=== PATIENT | male | born 1985 | race Caucasian/White ===

== ENCOUNTER 2016-11-07 13:53 | Emergency (ER) | payer OTHER ==
[2016-11-07] MEDS ORDERED: Rabies VIRUS VACCINE, HDCV* 2.5 UNIT/ML 1 ML IM ONE (14:06)
[2016-11-07] MEDS ORDERED: Rabies Immune Globulin 10 ML* 150 UNIT/ML VIAL IM ONE (14:07)
[2016-11-07] MEDS ORDERED: Rabies Immune Globulin 2 ML* 150 UNITS/ML VIAL IM ONE (14:08)
[2016-11-07 14:11] VITALS: BP 96/56
[2016-11-07] MEDS ORDERED: Tetan/Diph/Pertus SYR(Tdap)* 0.5 ML SYR(BOOSTRIX) use SYR IM ONE (14:12)
--- NOTE | 2016-11-07 14:14 | UC ---
General HPI - HPI Summary HPI Summary: had a bat flying in his bed room---Here for Vaccines - History of Current Complaint Chief Complaint: UCGeneralIllness Stated Complaint: RABIES EXPOSURE Time Seen by Provider: 11/07/16 14:10 Hx Obtained From: Patient Onset/Duration: Sudden Onset Timing: Constant Current Severity: None - Allergy/Home Medications Allergies/Adverse Reactions: Allergies Allergy/AdvReac Type Severity Reaction Status Date / Time No Known Allergies Allergy Verified 11/07/16 13:58 Home Medications: Home Medications NK [No Home Medications Reported] 11/07/16 [History Confirmed 11/07/16] PMH/Surg Hx/FS Hx/Imm Hx Previously Healthy: Yes - Surgical History Surgical History: None - Family History Known Family History: Positive: None - Social History Occupation: Employed Full-time Lives: With Family Alcohol Use: Occasionally Substance Use Type: None Smoking Status (MU): Never Smoked Tobacco Review of Systems Constitutional: Negative Skin: Negative Eyes: Negative ENT: Negative Respiratory: Negative Cardiovascular: Negative Gastrointestinal: Negative Genitourinary: Negative Motor: Negative Neurovascular: Negative Musculoskeletal: Negative Neurological: Negative Psychological: Negative All Other Systems Reviewed And Are Negative: Yes Physical Exam Triage Information Reviewed: Yes Appearance: Well-Appearing, No Pain Distress, Well-Nourished Vital Signs: Initial Vital Signs Temp 99.6 F 11/07/16 13:58 Pulse 51 11/07/16 13:58 Resp 16 11/07/16 13:58 BP 96/56 11/07/16 13:58 Pulse Ox 98 11/07/16 13:58 Vital Signs Reviewed: Yes Eye Exam: Normal Eyes: Positive: Conjunctiva Clear ENT Exam: Normal ENT: Positive: Normal ENT inspection, Hearing grossly normal, Pharynx normal. Negative: Nasal congestion, Nasal drainage, Trismus, Muffled/hoarse voice Dental Exam: Normal Neck exam: Normal Neck: Positive: Supple, Nontender Respiratory Exam: Normal Respiratory: Positive: Chest non-tender, No respiratory distress, No accessory muscle use Cardiovascular Exam: Normal Cardiovascular: Positive: RRR, No Murmur, Pulses Normal, Brisk Capillary Refill Musculoskeletal Exam: Normal Musculoskeletal: Positive: Strength Intact, ROM Intact, No Edema Neurological Exam: Normal Neurological: Positive: Alert, Muscle Tone Normal Psychological Exam: Normal Skin Exam: Normal Course/Dx - Course Course Of Treatment: RIG, Vaccine, Update tetanus follow with [facility] as planned - Differential Dx - Multi-Symptom Differential Diagnoses: Metabolic Abnormality, Other - rabies exposure Provider Diagnoses: Bat exposure PIP Discharge - Discharge Plan Condition: Stable Disposition: HOME Patient Education Materials: Rabies Vaccine (By injection), Rabies Immune Globulin (By injection) Referrals: No Primary Care Phys,NOPCP [Primary Care Provider] - Additional Instructions: Follow with [facility] for further vaccine
== END 2016-11-07 14:40 | disposition home or self-care (01) ==
LOC: UCEAST 13:53
DX: Z20.3 Contact with and (suspected) exposure to rabies (principal); Z23 Encounter for immunization
CPT/HCPCS: 90375; 90471; 90472; 90715; 96372; 99201; G0463

== ENCOUNTER 2017-11-23 19:14 | Emergency (ER) | payer OTHER ==
[2017-11-23 19:34] VITALS: BP 101/57
--- NOTE | 2017-11-23 20:07 | UC ---
Respiratory Complaint HPI - HPI Summary HPI Summary: The pt is a 32 yo male who returned from [facility] about a week ago the next day he developed fever/chills/MASON/coughnand severe myalgias he initially had about 5 episodes of diarrhea a day now down to 2 no abd pain he has been anorexic no hx of asthma or pneumonia - History of Current Complaint Chief Complaint: UCGeneralIllness Stated Complaint: PRODUCTIVE COUGH, ACHES Time Seen by Provider: 11/23/17 19:29 Hx Obtained From: Patient Onset/Duration: Gradual Onset, Lasting Minutes Timing: Constant Severity Initially: Mild Severity Currently: Mild Pain Intensity: 3 Pain Scale Used: 0-10 Numeric Character: Cough: Productive Aggravating Factors: Nothing Associated Signs And Symptoms: Positive: Fever, Chills. Negative: Dyspnea, Pleuritic Chest Pain, Wheezing, Hemoptysis, Dizziness, Calf Pain, Calf Swelling , Edema, URI, Nasal Congestion, Hoarseness, Sinus Discomfort - Allergies/Home Medications Allergies/Adverse Reactions: Allergies Allergy/AdvReac Type Severity Reaction Status Date / Time No Known Allergies Allergy Verified 11/23/17 19:34 PMH/Surg Hx/FS Hx/Imm Hx Previously Healthy: Yes - Surgical History Surgical History: None - Family History Known Family History: Positive: Hypertension - Social History Alcohol Use: Occasionally Substance Use Type: None Smoking Status (MU): Never Smoked Tobacco Review of Systems Constitutional: Fever, Chills, Fatigue Skin: Negative Eyes: Negative ENT: Negative Respiratory: Cough Cardiovascular: Negative Gastrointestinal: Diarrhea Genitourinary: Negative Motor: Negative Neurovascular: Negative Musculoskeletal: Myalgia Neurological: Headache Psychological: Negative Is Patient Immunocompromised?: No All Other Systems Reviewed And Are Negative: Yes Physical Exam Triage Information Reviewed: Yes Appearance: Well-Appearing, No Pain Distress, Well-Nourished, Thin Vital Signs: Initial Vital Signs Temp 97.5 F 11/23/17 19:28 Pulse 44 11/23/17 19:28 Resp 18 11/23/17 19:28 BP 101/57 11/23/17 19:28 Pulse Ox 96 11/23/17 19:28 Vital Signs Reviewed: Yes Eyes: Positive: Conjunctiva Clear ENT: Positive: Hearing grossly normal, TMs normal. Negative: Pharyngeal erythema, Nasal congestion, Nasal drainage, Tonsillar swelling, Tonsillar exudate, Trismus, Muffled voice, Hoarse voice Dental Exam: Normal Neck: Positive: Supple, Nontender, No Lymphadenopathy Respiratory: Positive: Lungs clear, Normal breath sounds, No respiratory distress, No accessory muscle use Cardiovascular: Positive: RRR, No Murmur. Negative: Bradycardia - pulse 60 when I checked it Abdomen Description: Positive: Nontender, No Organomegaly, Soft Musculoskeletal: Positive: ROM Intact, No Edema Neurological: Positive: Alert, Muscle Tone Normal Psychological Exam: Normal Skin Exam: Normal UC Diagnostic Evaluation - Laboratory O2 Sat by Pulse Oximetry: 96 - normal/not hypoxic Diagnostic Studies Comment: (+) influenza A - Radiology Xray Interpretation: No Acute Changes - ?? RLL infiltrate but I think I'm over reading it Radiology Interpretation Completed By: ED Physician Respiratory Course/Dx - Differential Dx/Diagnosis Provider Diagnoses: influenza A Discharge - Sign-Out/Discharge Documenting (check all that apply): Patient Departure All imaging exams completed and their final reports reviewed: No - Discharge Plan Condition: Stable Disposition: HOME Prescriptions: Oseltamivir CAP* [Tamiflu CAP*] 75 mg PO BID #8 cap Patient Education Materials: Influenza (ED) Referrals: No Primary Care Phys,NOPCP [Primary Care Provider] - Additional Instructions: rest fluids tylenol or advil recheck in 72 hours if still febrile - Billing Disposition and Condition Condition: STABLE Disposition: Home
[2017-11-23] MEDS ORDERED: Oseltamivir CAP* 75 MG CAP PO ONE ×2 (20:13→20:14)
--- NOTE | 2017-11-24 07:43 | RAD ---
Indication: Cough, fever. 2 views of the chest including dual energy PA views demonstrate no mediastinal shift. Heart is of normal size and configuration. Lung zhu demonstrate no pleural fluid, pneumonia or pneumothorax. IMPRESSION: No active cardiopulmonary disease is noted. R2
== END 2017-11-23 20:25 | disposition home or self-care (01) ==
LOC: UCEAST 19:14
DX: J10.1 Influenza due to other identified influenza virus with other respiratory manifestations (principal)
CPT/HCPCS: 71046; 99212; A9270-GY; G0463